=== PATIENT | female | born 1960 | race Caucasian/White ===

== ENCOUNTER 2024-03-11 10:15 | Emergency (ER) | payer OTHER ==
[~2024-03-11] VITALS: Ht 162.6 cm; Wt 49.9 kg
[2024-03-11 10:48] VITALS: BP 150/85; PULSE 84; RESP 20; TEMP 98.2; O2SAT 95
[2024-03-11] MEDS ORDERED: LEVOFLOXACIN 500 MG/D5W PREMIX 100 ML IV ONE (11:00)
[2024-03-11 11:38] LABS: BASOPHILS % (AUTO) 0.1 % (0.0-2.0); EOSINOPHILS % (AUTO) 0.2 % (0.0-4.0); HEMATOCRIT 43.7 % (36-48); HEMOGLOBIN 14.4 g/dL (12.0-16.0); LYMPHOCYTES # (AUTO) 0.5 K/uL (2.5-16.5); LYMPHOCYTES % (AUTO) 3.4 % (20.5-51.1); MEAN CORPUSCULAR HEMOGLOBIN 28 pg (27-31); MEAN CORPUSCULAR HGB CONC 33 g/dL (33-37); MEAN CORPUSCULAR VOLUME 84.4 fL (80-94); MONOCYTES # (AUTO) 0.3 K/uL (0.8-1.0); MONOCYTES % (AUTO) 1.9 % (1.7-9.3); NEUTROPHILS # (AUTO) 14.5 K/uL (1.8-7.7); NEUTROPHILS % (AUTO) 94.4 % (42.2-75.2); PLATELET COUNT (AUTO) 294 K/uL (140-450); RED BLOOD CELL COUNT(AUTO) 5.18 MIL/uL (4.20-5.40); RED CELL DISTRIBUTION WIDTH 13.8 % (11.6-13.7); WHITE BLOOD COUNT (AUTO) 15.4 K/uL (4.8-10.8)
[2024-03-11 11:49] LABS: ANION GAP 15.7 (8-16); CALCIUM 9.6 mg/dL (8.5-10.1); CREATININE 0.8 mg/dL (0.6-1.3); POTASSIUM 3.7 mmol/L (3.5-5.1)
[2024-03-11 11:59] LABS: ALANINE AMINOTRANSFERASE 26 U/L (12-78); ALBUMIN 3.9 g/dL (3.4-5.0); ALKALINE PHOSPHATASE 106 U/L (50-136); ASPARTATE AMINOTRANSFERASE 18 U/L (15-37); BILIRUBIN,DIRECT 0.2 mg/dL (0.0-0.3); LIPASE 24 U/L (16-77); TOTAL BILIRUBIN 0.9 mg/dL (0.0-1.0)
[2024-03-11 12:01] LABS: LACTIC ACID 1.8 mmol/L (0.4-2.0)
[2024-03-11 12:07] LABS: FLU B ANTIGEN negative (NEGATIVE)
[2024-03-11 12:10] LABS: FLU A ANTIGEN POSITIVE (NEGATIVE)
[2024-03-11] MEDS: ONDANSETRON 4 MG/2 ML VIAL IVP ONE (12:36)
[2024-03-11] MEDS: KETOROLAC 30 MG/ML VIAL IVP ONE (12:36)
[2024-03-11] MEDS ORDERED: ONDA8TAB87 PO (13:03)
[2024-03-11] MEDS ORDERED: IBUP-2213 PO (13:03)
[2024-03-11] MEDS ORDERED: LOPE-289 PO (13:03)
[2024-03-11 13:13] LABS: APPEARANCE,URINE CLEAR (CLEAR); BILIRUBIN,URINE NEGATIVE (NEGATIVE); BLOOD, URINE NEGATIVE (NEGATIVE); COLOR,URINE YELLOW (YELLOW); LEUKOCYTE ESTERASE ,URINE NEGATIVE (NEGATIVE); NITRITE, URINE NEGATIVE (NEGATIVE); PROTEIN,URINE NEGATIVE (NEGATIVE); UGLUCOSE NEGATIVE (NEGATIVE); UROBILINOGEN,URINE 0.2 EU/dL (0.2 - 1)
[2024-03-11 14:02] VITALS: BP 130/74; PULSE 74; RESP 20; O2SAT 96
== END 2024-03-11 14:03 | disposition home or self-care (01) ==
LOC: MED 10:15
DX: R53.83 Other fatigue (principal); R11.2 Nausea with vomiting, unspecified; R19.7 Diarrhea, unspecified; J10.1 Influenza due to other identified influenza virus with other respiratory manifestations; F12.90 Cannabis use, unspecified, uncomplicated; Z20.822 Contact with and (suspected) exposure to COVID-19; Z85.41 Personal history of malignant neoplasm of cervix uteri; Z90.710 Acquired absence of both cervix and uterus; Z79.899 Other long term (current) drug therapy; Z88.0 Allergy status to penicillin
CPT/HCPCS: 36415; 71045; 74176; 80048; 80076; 81003; 83605; 83690; 83880; 84484; 85025; 87040; 87086; 87426; 87804; 93005; 96374; 96375; 99285; J1885; J1956; J2405